=== PATIENT | female | born 1965 | race Caucasian/White ===

== ENCOUNTER 2020-03-15 06:48 | Emergency (ER) | payer MEDICARE, BC ==
[~2020-03-15] VITALS: Ht 160 cm; Wt 70.3 kg
[2020-03-15] MEDS ORDERED: NEURONTIN100 MG PO (07:27)
[2020-03-15] MEDS ORDERED: BUPROPION XL300 MG PO (07:27)
[2020-03-15] MEDS ORDERED: DRIZALMA SPRINK60 MG PO (07:28)
[2020-03-15] MEDS ORDERED: LORCET 5-325 M1 EACH PO (07:28)
[2020-03-15] MEDS ORDERED: REMERON15 M2 PO (07:29)
[2020-03-15] MEDS ORDERED: PROTONIX40 M2 PO (07:29)
[2020-03-15] MEDS ORDERED: ALPRAZOLAM ER1 MG PO (07:29)
[2020-03-15] MEDS ORDERED: TOPROL XL50 MG PO (07:30)
[2020-03-15] MEDS ORDERED: AROMASIN25 MG PO (07:30)
[2020-03-15] MEDS ORDERED: KLONOPIN0.5 MG PO (07:30)
[2020-03-15] MEDS ORDERED: DILAUDID1 MG/1 M1 PO (07:31)
[2020-03-15] MEDS ORDERED: DOXY 100100 MG PO (07:31)
[2020-03-15 07:41] LABS: HEMATOCRIT 39.9 % (37.0-47.0); HEMOGLOBIN 13.7 gm/dL (12.0-15.0); MCHC 34.3 g/dL (28.0-37.0); MPV 6.9 fl. (7.2-11.1); RBC 4.15 mil/uL (4.20-5.00); RDW-CV 16.8 % (10.5-14.5); WBC 5.9 thou/uL (4.0-11.0)
[2020-03-15 07:45] LABS: CALCIUM 9.7 mg/dL (8.5-10.1); CREATININE 1.1 mg/dL (0.6-1.3); POTASSIUM 4.5 mmol/L (3.5-5.1)
[2020-03-15 07:50] LABS: ALBUMIN 3.3 g/dL (3.4-5.0); TOTAL BILIRUBIN 0.7 mg/dL (<0.1-1.0); TOTAL PROTEIN 8.2 g/dL (6.4-8.2)
[2020-03-15 07:56] LABS: ALCOHOL < 10 mg/dL (<10); SALICYLATE < 2.8 mg/dL (2.8-20.0)
[2020-03-15 07:59] LABS: ACETAMINOPHEN < 2 ug/mL (10-30)
[2020-03-15 11:34] LABS: URINE BILIRUBIN NEGATIVE (Negative); URINE BLOOD 1+ (Negative); URINE CLARITY CLEAR; URINE COLOR YELLOW; URINE GLUCOSE-RANDOM NEGATIVE (Negative); URINE KETONES NEGATIVE (Negative); URINE LEUKOCYTES NEGATIVE (Negative); URINE NITRITE NEGATIVE (Negative); URINE PROTEIN NEGATIVE (Negative); URINE SPECIFIC GRAVITY 1.015 (1.005-1.030)
[2020-03-15 11:39] LABS: SQUAMOUS 4-10 Moderate /LPF (0-3); URINE WBC 0-5 Rare /HPF (0-5)
[2020-03-15 11:40] LABS: BACTERIA 1-9 Few /HPF (None Seen); CASTS None Seen /LPF (None Seen); CRYSTALS None Seen /LPF (None Seen); MUCUS None Seen strn/LPF (None Seen)
[2020-03-15 11:41] LABS: AMP/METHAMP Negative (Negative); BARBITURATES Negative (Negative); BENZODIAZEPINES POSITIVE (Negative); COCAINE Negative (Negative); METHADONE Negative (Negative); OPIATES POSITIVE (Negative); PCP Negative (Negative); THC POSITIVE (Negative)
[2020-03-15 20:09] VITALS: BP 133/71
== END 2020-03-15 20:09 ==
LOC: M.ERS 06:48
PROVIDERS: Personal Emergency Response Attendant
DX: F32.9 Major depressive disorder, single episode, unspecified (principal); R45.851 Suicidal ideations; Z79.899 Other long term (current) drug therapy; Z88.6 Allergy status to analgesic agent